=== PATIENT | female | born 1990 | race Caucasian/White ===

== ENCOUNTER 2024-01-07 10:26 | Day surgery (SDC) | payer BC, OTHER ==
[2024-01-03 18:09] VITALS: BMI 26.9
[2024-01-07] MEDS ORDERED: PROPOFOL 20 ML ONE (10:33)
[2024-01-07 12:31] VITALS: TEMP 97.5
[2024-01-07 12:35] VITALS: BP 110/60; PULSE 75; RESP 16
== END 2024-01-07 12:19 | disposition home or self-care (01) ==
LOC: FASU-ENDO 10:26
PROVIDERS: ATTEND Internal Medicine Gastroenterology
PROC: 0DJD8ZZ Inspection of Lower Intestinal Tract, Via Natural or Artificial Opening Endoscopic (ICD-10-PCS; principal; 2024-01-07 11:02)
DX: K62.1 Rectal polyp (principal); K64.1 Second degree hemorrhoids
CPT/HCPCS: 81025